=== PATIENT | male | born 1975 | race Caucasian/White ===

== ENCOUNTER 2019-06-29 20:05 | Emergency (ER) | payer SELFPAY ==
[~2019-06-29] VITALS: Ht 185.4 cm; Wt 90.7 kg
[2019-06-29 20:10] VITALS: BP_SYST 140
--- NOTE | 2019-06-29 20:15 | NUR ---
Patient to ER bed 5 to gown for evaluation. Side rails up. Report given to Ap PEREZ.
--- NOTE | 2019-06-29 20:15 | NUR ---
Pt c/o abcesses to right upper arm, LFA and Left hooker x 1 month and runny nose for the past year. Pt states that he uses Meth daily over the past 1.5 years. "I'm addicted to it." Pt states that he uses a razor to cut off the scabs on his LFA. Multiple bumps noted to all extremities. No drainage to sites.
--- NOTE | 2019-06-29 21:52 | NUR ---
ER at bedside examining patient.
--- NOTE | 2019-06-29 22:10 | NUR ---
Patient given written and verbal discharge instructions and verbalizes understanding. ER MD discussed with patient the results and treatment provided. Patient in stable condition. ID arm band removed. Rx of Keflex, Bactrum DS, Motrin given. Patient educated on pain management and to follow up with PMD. Pain Scale 0/10. Opportunity for questions provided and answered. Medication side effect fact sheet provided.
[2019-06-29 22:11] VITALS: BP_SYST 140
== END 2019-06-29 22:10 | disposition home or self-care (01) ==
LOC: SED 20:05
DX: L02.414 Cutaneous abscess of left upper limb (principal); L02.416 Cutaneous abscess of left lower limb; R03.0 Elevated blood-pressure reading, without diagnosis of hypertension; F17.210 Nicotine dependence, cigarettes, uncomplicated; Z91.013 Allergy to seafood; Z91.048 Other nonmedicinal substance allergy status
CPT/HCPCS: 99283